=== PATIENT | male | born 1970 | race Caucasian/White ===

== ENCOUNTER 2018-09-06 22:23 | Emergency (ER) | payer MEDICARE, MEDICAID ==
[2018-09-06 23:18] LABS: ADD MAN DIFF? NO
[2018-09-06 23:19] LABS: BASOPHILS % 0.5 % (0.0-2.0); EOSINOPHILS % 0.1 % (0.0-7.0); HEMATOCRIT 44.9 % (42.0-52.0); HEMOGLOBIN 15.5 g/dl (14.0-18.0); LYMPHOCYTES # 1.3 10^3/ul (0.8-2.9); LYMPHOCYTES % 15.4 % (15.0-51.0); MEAN CORPUSCULAR HEMOGLOBIN 31.3 pg (29.0-33.0); MEAN CORPUSCULAR HGB CONC 34.5 g/dl (32.0-37.0); MEAN CORPUSCULAR VOLUME 90.7 fl (82.0-101.0); MEAN PLATELET VOLUME 9.5 fl (7.4-10.4); MONOCYTE # 0.5 10^3/ul (0.3-0.9); MONOCYTES % 5.9 % (0.0-11.0); NEUTROPHIL # 6.7 10^3/ul (1.6-7.5); NEUTROPHILS % 77.8 % (39.0-77.0); PLATELET COUNT 300 10^3/UL (140-415); RED BLOOD COUNT 4.95 10^6/ul (4.70-6.10); RED CELL DISTRIBUTION WIDTH 12.9 % (11.5-14.5)
[2018-09-06 23:19] LABS: WHITE BLOOD COUNT 8.7 10^3/ul (4.8-10.8)
[2018-09-06 23:30] LABS: ACETAMINOPHEN < 10.0 ug/ml (10.0-30.0); ALANINE AMINOTRANSFERASE 50 IU/L (13-69); ALBUMIN 4.5 g/dl (3.3-4.9); ALKALINE PHOSPHATASE 124 IU/L (42-121); ANION GAP 8 (5-13); ASPARTATE AMINO TRANSFERASE 29 IU/L (15-46); BILIRUBIN,INDIRECT 1.5 mg/dl (0-1.1); BILIRUBIN,TOTAL 1.5 mg/dl (0.2-1.3); BLOOD UREA NITROGEN 11 mg/dl (7-20); CALCIUM 9.9 mg/dl (8.4-10.2); CARBON DIOXIDE 29 mmol/L (21-31); CHLORIDE 101 mmol/L (97-110); CREATININE 0.77 mg/dl (0.61-1.24); ETHANOL < 10.0 mg/dl; Estimated GFR > 60 mL/min (>60); GLUCOSE 117 mg/dl (70-220); POTASSIUM 3.5 mmol/L (3.5-5.1); SALICYLATE < 1.0 mg/dl (5.0-30.0); SODIUM 138 mmol/L (135-144); TOTAL PROTEIN 7.5 g/dl (6.1-8.1)
[2018-09-06] MEDS: LORAZEPAM 2 MG INJ IM (23:46)
== END 2018-09-07 | disposition left against medical advice (07) ==
LOC: E/R 09-07
DX: F41.9 Anxiety disorder, unspecified (principal); R40.2252 Coma scale, best verbal response, oriented, at arrival to emergency department; R40.2142 Coma scale, eyes open, spontaneous, at arrival to emergency department; R40.2362 Coma scale, best motor response, obeys commands, at arrival to emergency department; I10 Essential (primary) hypertension
CPT/HCPCS: 36415; 80053; 80307; 85025; 99285

== ENCOUNTER 2018-12-15 00:27 | Emergency (ER) | payer MEDICARE, OTHER, MEDICAID ==
[2018-12-15] MEDS: LORAZEPAM 1 MG TAB PO (01:22)
== END 2018-12-15 01:45 | disposition home or self-care (01) ==
LOC: E/R 00:27
DX: F41.9 Anxiety disorder, unspecified (principal); F17.210 Nicotine dependence, cigarettes, uncomplicated
CPT/HCPCS: 99283

== ENCOUNTER 2018-12-15 12:51 | Emergency (ER) | payer SELFPAY, OTHER, MEDICARE | END 2018-12-15 14:56 | disposition left against medical advice (07) | LOC: E/R 12:51 | DX: Z53.21 Procedure and treatment not carried out due to patient leaving prior to being seen by health care provider (principal) ==

== ENCOUNTER 2019-01-01 00:12 | Emergency (ER) | payer SELFPAY | END 2019-01-01 05:30 | disposition left against medical advice (07) | LOC: FTE 00:12 | DX: Z53.21 Procedure and treatment not carried out due to patient leaving prior to being seen by health care provider (principal) ==

== ENCOUNTER 2019-01-01 23:38 | Emergency (ER) | payer MEDICARE, OTHER | END 2019-01-02 02:30 | disposition home or self-care (01) | LOC: FTE 23:38 | DX: H60.503 Unspecified acute noninfective otitis externa, bilateral (principal); F17.210 Nicotine dependence, cigarettes, uncomplicated; E03.9 Hypothyroidism, unspecified | CPT/HCPCS: 99283 ==

== ENCOUNTER 2019-01-02 23:38 | Emergency (ER) | payer MEDICARE, OTHER ==
[2019-01-03 00:51] LABS: ADD MAN DIFF? NO
[2019-01-03 00:57] LABS: WHITE BLOOD COUNT 6.3 10^3/ul (4.8-10.8)
[2019-01-03 00:57] LABS: BASOPHIL # 0.1 10^3/ul (0.0-0.1); BASOPHILS % 0.8 % (0.0-2.0); EOSINOPHILS # 0.2 10^3/ul (0.0-0.5); HEMATOCRIT 39.3 % (42.0-52.0); HEMOGLOBIN 13.5 g/dl (14.0-18.0); LYMPHOCYTES # 1.6 10^3/ul (0.8-2.9); LYMPHOCYTES % 25.4 % (15.0-51.0); MEAN CORPUSCULAR HEMOGLOBIN 31.3 pg (29.0-33.0); MEAN CORPUSCULAR HGB CONC 34.4 g/dl (32.0-37.0); MEAN CORPUSCULAR VOLUME 91.2 fl (82.0-101.0); MEAN PLATELET VOLUME 9.7 fl (7.4-10.4); MONOCYTE # 0.5 10^3/ul (0.3-0.9); MONOCYTES % 7.2 % (0.0-11.0); NEUTROPHILS % 63.4 % (39.0-77.0); PLATELET COUNT 278 10^3/UL (140-415); RED BLOOD COUNT 4.31 10^6/ul (4.70-6.10); RED CELL DISTRIBUTION WIDTH 12.4 % (11.5-14.5)
[2019-01-03 01:12] LABS: ALANINE AMINOTRANSFERASE 28 IU/L (13-69); ALBUMIN 3.7 g/dl (3.3-4.9); ALBUMIN/GLOBULIN RATIO 1.42; ALKALINE PHOSPHATASE 106 IU/L (42-121); ANION GAP 7 (5-13); ASPARTATE AMINO TRANSFERASE 26 IU/L (15-46); BILIRUBIN,INDIRECT 0.5 mg/dl (0-1.1); BILIRUBIN,TOTAL 0.5 mg/dl (0.2-1.3); BLOOD UREA NITROGEN 12 mg/dl (7-20); CALCIUM 9.2 mg/dl (8.4-10.2); CARBON DIOXIDE 31 mmol/L (21-31); CHLORIDE 102 mmol/L (97-110); CREATININE 0.97 mg/dl (0.61-1.24); Estimated GFR > 60 mL/min (>60); GLUCOSE 98 mg/dl (70-220); POTASSIUM 3.8 mmol/L (3.5-5.1); SODIUM 140 mmol/L (135-144); TOTAL PROTEIN 6.3 g/dl (6.1-8.1)
[2019-01-03 01:43] LABS: ACETAMINOPHEN < 10.0 ug/ml (10.0-30.0); ETHANOL < 10.0 mg/dl (0-0); SALICYLATE < 1.0 mg/dl (5.0-30.0)
[2019-01-03] MEDS: RISPERIDONE 0.25 MG TAB PO (01:58)
== END 2019-01-03 12:30 ==
LOC: E/R 23:38
DX: F29 Unspecified psychosis not due to a substance or known physiological condition (principal); F17.210 Nicotine dependence, cigarettes, uncomplicated
CPT/HCPCS: 80053; 80307; 85025; 99285

== ENCOUNTER 2019-01-17 23:58 | Emergency (ER) | payer SELFPAY, MEDICARE, OTHER | END 2019-01-18 05:55 | disposition left against medical advice (07) | LOC: E/R 23:58 | DX: Z53.21 Procedure and treatment not carried out due to patient leaving prior to being seen by health care provider (principal) ==

== ENCOUNTER 2019-01-18 07:17 | Emergency (ER) | payer SELFPAY | END 2019-01-18 09:42 | disposition left against medical advice (07) | LOC: FTE 09:42 | DX: Z53.21 Procedure and treatment not carried out due to patient leaving prior to being seen by health care provider (principal) ==

== ENCOUNTER 2019-01-18 11:09 | Emergency (ER) | payer SELFPAY | END 2019-01-18 17:53 | disposition left against medical advice (07) | LOC: E/R 11:09 | DX: Z53.21 Procedure and treatment not carried out due to patient leaving prior to being seen by health care provider (principal) ==

== ENCOUNTER 2019-01-19 17:02 | Emergency (ER) | payer MEDICARE, OTHER ==
[2019-01-19 19:18] LABS: ADD MAN DIFF? NO
[2019-01-19 19:22] LABS: BASOPHILS % 0.5 % (0.0-2.0); EOSINOPHILS # 0.2 10^3/ul (0.0-0.5); EOSINOPHILS % 2.5 % (0.0-7.0); HEMATOCRIT 41.5 % (42.0-52.0); HEMOGLOBIN 14.2 g/dl (14.0-18.0); LYMPHOCYTES # 1.3 10^3/ul (0.8-2.9); LYMPHOCYTES % 20.5 % (15.0-51.0); MEAN CORPUSCULAR HEMOGLOBIN 31.5 pg (29.0-33.0); MEAN CORPUSCULAR HGB CONC 34.2 g/dl (32.0-37.0); MONOCYTE # 0.4 10^3/ul (0.3-0.9); MONOCYTES % 6.8 % (0.0-11.0); NEUTROPHIL # 4.4 10^3/ul (1.6-7.5); NEUTROPHILS % 69.4 % (39.0-77.0); PLATELET COUNT 288 10^3/UL (140-415); RED BLOOD COUNT 4.51 10^6/ul (4.70-6.10)
[2019-01-19 19:22] LABS: WHITE BLOOD COUNT 6.3 10^3/ul (4.8-10.8)
[2019-01-19 19:40] LABS: ALANINE AMINOTRANSFERASE 28 IU/L (13-69); ALBUMIN 3.8 g/dl (3.3-4.9); ALBUMIN/GLOBULIN RATIO 1.35; ALKALINE PHOSPHATASE 116 IU/L (42-121); ANION GAP 4 (5-13); ASPARTATE AMINO TRANSFERASE 20 IU/L (15-46); BILIRUBIN,INDIRECT 1.5 mg/dl (0-1.1); BILIRUBIN,TOTAL 1.5 mg/dl (0.2-1.3); BLOOD UREA NITROGEN 15 mg/dl (7-20); CALCIUM 9.3 mg/dl (8.4-10.2); CARBON DIOXIDE 31 mmol/L (21-31); CHLORIDE 105 mmol/L (97-110); CREATININE 0.83 mg/dl (0.61-1.24); Estimated GFR > 60 mL/min (>60); GLUCOSE 111 mg/dl (70-220); POTASSIUM 4.3 mmol/L (3.5-5.1); SODIUM 140 mmol/L (135-144); TOTAL PROTEIN 6.6 g/dl (6.1-8.1)
[2019-01-19 20:26] LABS: ACETAMINOPHEN < 10.0 ug/ml (10.0-30.0); ETHANOL < 10.0 mg/dl (0-0); SALICYLATE < 1.0 mg/dl (5.0-30.0)
[2019-01-19 21:20] LABS: ADD UMIC YES; UR AMORPHOUS CRYSTAL MODERATE /HPF (NONE SEEN); UR ASCORBIC ACID NEGATIVE (NEGATIVE); UR BILIRUBIN (Dip) NEGATIVE (NEGATIVE); UR BLOOD (Dip) NEGATIVE (NEGATIVE); UR CLARITY TURBID (CLEAR); UR COLOR YELLOW (YELLOW); UR GLUCOSE (Dip) NEGATIVE (NEGATIVE); UR KETONES (Dip) TRACE mg/dL (NEGATIVE); UR LEUKOCYTE ESTERASE (Dip) NEGATIVE Leu/ul (NEGATIVE); UR MUCUS FEW /HPF (NONE SEEN); UR NITRITE (Dip) NEGATIVE (NEGATIVE); UR RBC 2 /HPF (0-5); UR TOTAL PROTEIN (Dip) NEGATIVE (NEGATIVE); UR UROBILINOGEN (Dip) 2+ mg/dL (NEGATIVE); UR WBC 0 /HPF (0-5)
[2019-01-19 21:35] LABS: BARBITURATES Negative (NEGATIVE); BENZODIAZEPINES Negative (NEGATIVE); CANNABINOIDS Negative (NEGATIVE); COCAINE Negative (NEGATIVE); OPIATES Negative (NEGATIVE)
[2019-01-19 22:08] LABS: AMPHETAMINE/METHAMPHETAMINE POSITIVE (NEGATIVE)
[2019-01-19] MEDS: IBUPROFEN 600 MG TAB PO (22:56)
[2019-01-20] MEDS: NICOTINE (14 MG/24 HR) PATCH TRANSDERM (13:44)
== END 2019-01-20 14:40 ==
LOC: E/R 01-20 14:40
DX: R45.851 Suicidal ideations (principal); E03.9 Hypothyroidism, unspecified; Z87.891 Personal history of nicotine dependence
CPT/HCPCS: 36415; 80053; 80307; 81001; 85025; 99285-25

== ENCOUNTER 2019-05-29 03:56 | Emergency (ER) | payer MEDICARE, OTHER ==
[2019-05-29] MEDS: LORAZEPAM 1 MG TAB PO (04:35)
[2019-05-29] MEDS ORDERED: SOD CHLORIDE 0.9% 1,000 ML IV (05:00)
[2019-05-29] MEDS ORDERED: FAMOTIDINE 20 MG INJ IV (05:00)
[2019-05-29] MEDS ORDERED: DIPHENHYDRAMINE 50 MG INJ IV (05:00)
== END 2019-05-29 05:59 | disposition left against medical advice (07) ==
LOC: FTE 03:56
DX: F41.9 Anxiety disorder, unspecified (principal); E03.9 Hypothyroidism, unspecified; F17.210 Nicotine dependence, cigarettes, uncomplicated; R00.0 Tachycardia, unspecified
CPT/HCPCS: 93005; 99283-25

== ENCOUNTER 2019-06-07 03:30 | Emergency (ER) | payer MEDICARE, OTHER ==
[2019-06-07] MEDS: ALPRAZOLAM 1 MG TAB PO (04:35)
== END 2019-06-07 05:10 | disposition home or self-care (01) ==
LOC: FTE 03:30
DX: F41.9 Anxiety disorder, unspecified (principal); F17.210 Nicotine dependence, cigarettes, uncomplicated
CPT/HCPCS: 99283

== ENCOUNTER 2019-07-05 03:58 | Emergency (ER) | payer SELFPAY, OTHER, MEDICARE | END 2019-07-05 04:45 | disposition left against medical advice (07) | LOC: FTE 03:58 | DX: Z53.21 Procedure and treatment not carried out due to patient leaving prior to being seen by health care provider (principal) ==